=== PATIENT | female | born 1980 | race Caucasian/White ===

== ENCOUNTER 2018-03-05 10:15 | Day surgery (SDC) | payer OTHER ==
[2018-03-05] MEDS ORDERED: ROCURONIUM 50 MG INJ (12:42)
[2018-03-05] MEDS ORDERED: NEOSTIGMINE 3 MG/3 ML SYRINGE (12:42)
[2018-03-05] MEDS ORDERED: GLYCOPYRROLATE 0.4 MG INJ (12:42)
[2018-03-05] MEDS ORDERED: PROPOFOL 20 ML (12:42)
[2018-03-05] MEDS ORDERED: CEFAZOLIN 1 GM INJ (12:42)
[2018-03-05] MEDS ORDERED: MIDAZOLAM 1 MG/ML 2 ML INJ (12:43)
[2018-03-05] MEDS ORDERED: DEXAMETHASONE 4 MG/ML 1 ML INJ (12:43)
[2018-03-05] MEDS ORDERED: ONDANSETRON 4 MG INJ (12:43)
[2018-03-05] MEDS ORDERED: FENTAnyl 50 MCG/ML VIAL (12:43)
[2018-03-05] MEDS ORDERED: ALBUTEROL 0.083% (NEB) 2.5 MG/3 ML AMP HHN (13:30)
[2018-03-05] MEDS ORDERED: hydrALAzine 20 MG INJ IV (13:30)
[2018-03-05] MEDS ORDERED: MIDAZOLAM 1 MG/ML 2 ML INJ IV (13:30)
[2018-03-05] MEDS ORDERED: ONDANSETRON 4 MG INJ IV ×3 (13:30→14:30)
[2018-03-05] MEDS ORDERED: OXYCODONE/ACETAMINOPHEN (5/325) TAB PO ×2 (13:30)
[2018-03-05] MEDS ORDERED: MEPERIDINE 25 MG INJ IV ×2 (13:30→14:30)
[2018-03-05] MEDS ORDERED: DIPHENHYDRAMINE 50 MG INJ IV ×2 (13:30→14:30)
[2018-03-05] MEDS ORDERED: FENTAnyl 50 MCG/ML VIAL IV ×4 (13:30→14:30)
[2018-03-05] MEDS ORDERED: IPRATROPIUM (NEB) 0.5 MG/2.5 ML AMP HHN (13:30)
[2018-03-05] MEDS ORDERED: TRIMETHOBENZAMIDE 100 MG/ML VIAL IM (13:30)
[2018-03-05] MEDS ORDERED: HYDROmorphONE (0.2 MG/ML) 10ML SYG IV ×4 (13:30→14:30)
[2018-03-05] MEDS ORDERED: LABETALOL HCL 20MG INJ IV ×2 (13:30→14:30)
[2018-03-05] MEDS ORDERED: EPHEDrine SULFATE 50 MG/5 ML SYG IV (13:30)
[2018-03-05] MEDS ORDERED: FUROSEMIDE 20 MG INJ (13:52)
[2018-03-05] MEDS ORDERED: SUGAMMADEX SODIUM 200 MG/2 ML VIAL IV (14:09)
[2018-03-05] MEDS ORDERED: KETOROLAC 15 MG INJ IV (14:30)
[2018-03-05] MEDS: HYDROmorphONE (0.2 MG/ML) 10ML SYG IV (15:05)
[2018-03-05] MEDS: HYDROCODONE/APAP (5/325) TAB PO (16:17)
== END 2018-03-05 16:45 | disposition home or self-care (01) ==
LOC: SDS 10:15
DX: N20.0 Calculus of kidney (principal)
CPT/HCPCS: 52332; 74430; 87086

== ENCOUNTER 2018-04-30 09:45 | Day surgery (SDC) | payer OTHER ==
[~2018-04-30 09:45] MED LIST: ONDANSETRON 4 MG INJ
[2018-04-30] MEDS ORDERED: CEFTRIAXONE 1 GM/NS 50 ML IVPB (12:00)
[2018-04-30] MEDS ORDERED: LIDOCAINE 2% (SDV) 5 ML INJ (13:10)
[2018-04-30] MEDS ORDERED: ROCURONIUM 50 MG INJ (13:10)
[2018-04-30] MEDS ORDERED: NEOSTIGMINE 3 MG/3 ML SYRINGE ×2 (13:10→14:33)
[2018-04-30] MEDS ORDERED: PROPOFOL 20 ML (13:10)
[2018-04-30] MEDS ORDERED: MEPERIDINE 100 MG INJ (13:10)
[2018-04-30] MEDS ORDERED: GLYCOPYRROLATE 0.4 MG INJ ×2 (13:10→14:34)
[2018-04-30] MEDS ORDERED: SUCCINYLCHOLINE CHLORIDE 100 MG/5 ML SYG IV (13:10)
[2018-04-30] MEDS ORDERED: HYDROCODONE/APAP (5/325) TAB PO (14:00)
[2018-04-30] MEDS ORDERED: ONDANSETRON 4 MG INJ IV ×2 (14:00→15:00)
[2018-04-30] MEDS ORDERED: FUROSEMIDE 20 MG INJ (14:24)
[2018-04-30] MEDS ORDERED: MEPERIDINE 25 MG INJ (14:54)
[2018-04-30] MEDS: MEPERIDINE 25 MG INJ IV (14:59)
[2018-04-30] MEDS ORDERED: HYDROmorphONE 1 MG/5 ML IV SYRINGE IV ×2 (15:00)
[2018-04-30] MEDS ORDERED: EPHEDrine SULFATE 50 MG/5 ML SYG IV (15:00)
[2018-04-30] MEDS ORDERED: DIPHENHYDRAMINE 50 MG INJ IV (15:00)
[2018-04-30] MEDS ORDERED: LABETALOL HCL 20MG INJ IV (15:00)
[2018-04-30] MEDS ORDERED: hydrALAzine 20 MG INJ IV (15:00)
[2018-04-30] MEDS ORDERED: MIDAZOLAM 1 MG/ML 2 ML INJ IV (15:00)
[2018-04-30] MEDS ORDERED: OXYCODONE/ACETAMINOPHEN (5/325) TAB PO (15:00)
[2018-04-30] MEDS ORDERED: METOCLOPRAMIDE 10 MG INJ IV (15:00)
[2018-04-30] MEDS ORDERED: FENTAnyl 50 MCG/ML VIAL IV ×3 (15:00)
[2018-04-30] MEDS: HYDROmorphONE 1 MG/5 ML IV SYRINGE IV (15:08)
[2018-04-30] MEDS: OXYCODONE/ACETAMINOPHEN (5/325) TAB PO (16:16)
== END 2018-04-30 16:42 | disposition home or self-care (01) ==
LOC: SDS 09:45
DX: N20.0 Calculus of kidney (principal); Z87.891 Personal history of nicotine dependence
CPT/HCPCS: 52356; 74430; 84703; 87086; 88300